=== PATIENT | female | born 1940 | race Caucasian/White ===

== ENCOUNTER 2018-05-03 13:49 | Emergency (ER) | payer OTHER ==
[~2018-05-03] VITALS: Ht 167.6 cm; Wt 78.9 kg
[~2018-05-03 13:49] MED LIST: ACET500 PO; ALPR.5 PO; ANAS1 PO; ASCO250CH PO; ASPI81CH PO; ATOR20 PO; CALCAVITD PO; CALCAVITDA PO; CHOL10002 PO; CLOP75 PO; DIPH50 PO; FISH OIL PO; FISH1000 PO; Flonase 0.05% N16 GM; GLYB2.5 PO; HYDACE5325 PO; HYDCHL25 PO; HYDR1TAB94 PO; Isosorbide Mono60 MG PO; LOSA25 PO; LOSA50 PO; METF500 PO; METO50 PO; MULVITA PO; NIAC500ER PO; OLME20 PO; OMEP20ER PO; OXYB5 PO; RXONDA4ODT MM; STOMUL PO; UBID100 PO; VENL150ER PO; VENL75ER PO
[2018-05-03 14:29] LABS: BASOPHILS ABSOLUTE AUTO 0.04 K/mm3 (0.00-0.23); BASOPHILS PERCENT AUTO 1 % (0-2); EOSINOPHILS ABSOLUTE AUTO 0.17 K/mm3 (0.00-0.68); EOSINOPHILS PERCENT AUTO 2 % (0-6); Hematocrit 38.9 % (33.0-51.0); Hemoglobin 12.8 g/dL (11.5-16.0); IMMATURE GRAN ABSOLUTE AUTO 0.06 K/mm3 (0.00-0.10); IMMATURE GRAN PERCENT AUTO 1 % (0-1); LYMPHOCYTES ABSOLUTE AUTO 2.66 K/mm3 (0.84-5.20); LYMPHOCYTES PERCENT AUTO 31 % (21-46); MONOCYTES ABSOLUTE AUTO 0.82 K/mm3 (0.16-1.47); MONOCYTES PERCENT AUTO 10 % (4-13); Mean Corpuscular HGB 29.2 pg (26.0-34.0); Mean Corpuscular HGB Conc 32.9 g/dL (31.5-36.5); Mean Corpuscular Volume 89 fL (80-100); Mean Platelet Volume 11.1 fL (9.1-12.4); NEUTROPHILS ABSOLUTE AUTO 4.79 K/mm3 (1.96-9.15); NEUTROPHILS PERCENT AUTO 56 % (41-73); Platelet Count 270 K/mm3 (150-400); RDW Coefficient Variation 13.2 % (11.7-14.2); RDW Standard Deviation 43.3 fL (35.1-46.3); Red Blood Cell Count 4.39 M/mm3 (3.80-5.20); White Blood Cell Count 8.54 K/mm3 (4.00-11.30)
[2018-05-03 14:56] LABS: Alanine Aminotransfer (ALT/SGP 18 U/L (12-78); Albumin, Blood 3.6 g/dL (3.4-5.0); Albumin/Globulin Ratio 1.2 (0.8-1.8); Alk Phos 116 U/L (50-136); Anion Gap 9 mmol/L (6-16); Aspartate Aminotrans (AST/SGOT 14 U/L (12-37); Bilirubin, Total 0.8 mg/dL (0.1-1.0); Blood Urea Nitrogen 21 mg/dL (8-24); Bun/Creatinine Ratio 18.9 (12.0-20.0); CO2, Blood 23 mmol/L (21-32); Calcium, Blood 8.9 mg/dL (8.5-10.1); Chloride, Blood 110 mmol/L (98-108); Creatinine, Blood 1.11 mg/dL (0.40-1.00); Glomerular Filtration Rate 50 (60-); Glucose, Blood 137 mg/dL (70-99); Potassium, Blood 3.9 mmol/L (3.5-5.5); Sodium, Blood 142 mmol/L (136-145); Total Protein, Blood 6.6 g/dL (6.4-8.2); Troponin I <0.015 ng/mL (0.000-0.040)
[2018-05-03 15:53] LABS: Source, Urine Clean Catch
[2018-05-03 15:57] LABS: Appearance, Urine Cloudy (Clear); Bilirubin, Urine Neg (Neg); Blood, Urine 4+ (Neg); Color, Urine Yellow (P-Yellow); Glucose Qualitative, Urine Neg (Neg); Ketones, Urine Neg (Neg); Leukocyte Esterase, Urine 3+ (Neg); Nitrite, Urine Pos (Neg); Protein, Urine 2+ (Neg); Urobilinogen, Urine NORM (Normal)
[2018-05-03 16:21] LABS: White Blood Cells, Urine TNTC /hpf (0-5)
[2018-05-03 16:22] LABS: Bacteria Many /hpf; Squamous Epithelial Cells Few /hpf (Few)
[2018-05-03] MEDS ORDERED: CEPH500 PO (16:34)
== END 2018-05-03 16:58 | disposition home or self-care (01) ==
LOC: ER 13:49
PROVIDERS: Physician Assistant
DX: R07.9 Chest pain, unspecified (principal); N39.0 Urinary tract infection, site not specified; I25.2 Old myocardial infarction; I10 Essential (primary) hypertension; E11.9 Type 2 diabetes mellitus without complications; Z88.8 Allergy status to other drugs, medicaments and biological substances; Z79.899 Other long term (current) drug therapy; Z79.82 Long term (current) use of aspirin; Z79.84 Long term (current) use of oral hypoglycemic drugs; Z87.891 Personal history of nicotine dependence
CPT/HCPCS: 36415; 71046; 80053; 81001; 84484; 85025; 87077; 87086; 87186; 93005; 93010; J0696

== ENCOUNTER 2019-04-29 11:03 | Emergency (ER) | payer OTHER ==
[~2019-04-29] VITALS: Ht 165.1 cm; Wt 63.5 kg
[~2019-04-29 11:03] MED LIST changes: +CEPH500 PO
[2019-04-29] MEDS ORDERED: Norco 5-325 Ta1 EACH PO (13:24)
== END 2019-04-29 13:49 | disposition home or self-care (01) ==
LOC: ER 11:03
DX: S42.032A Displaced fracture of lateral end of left clavicle, initial encounter for closed fracture (principal); W18.30XA Fall on same level, unspecified, initial encounter; Z88.8 Allergy status to other drugs, medicaments and biological substances; Z79.899 Other long term (current) drug therapy; Z79.84 Long term (current) use of oral hypoglycemic drugs; Z79.82 Long term (current) use of aspirin; I10 Essential (primary) hypertension; E11.9 Type 2 diabetes mellitus without complications; Z87.891 Personal history of nicotine dependence
CPT/HCPCS: 70450; 71130; 72125; 73030; 99284-25; A9270-GY

== ENCOUNTER → 2022-02-07 | Outpatient (CLI) | payer OTHER ==
[~2022-02-07] MED LIST changes: +Norco 5-325 Ta1 EACH PO
== END | disposition home or self-care (01) ==
LOC: LAB 08:54 → PLD 08:54 → LAB SHORT 08:54
DX: D48.5 Neoplasm of uncertain behavior of skin (principal)
CPT/HCPCS: 88305

== ENCOUNTER → 2022-03-06 | Outpatient (CLI) | payer OTHER | END | disposition home or self-care (01) | LOC: LAB 07:52 → PLD 07:52 → LAB SHORT 07:52 | DX: D04.61 Carcinoma in situ of skin of right upper limb, including shoulder (principal) | CPT/HCPCS: 88305 ==

== ENCOUNTER → 2022-04-14 | Outpatient (CLI) | payer OTHER ==
[2022-04-17 14:17] LABS: Adenovirus F 40/41 Not Detected (NOT DETECT); Astrovirus Not Detected (NOT DETECT); Campylobacter Sp Not Detected (NOT DETECT); Cryptosporidium Not Detected (NOT DETECT); Cyclospora Cayetanensis Not Detected (NOT DETECT); E. Coli O157 Not Detected (NOT DETECT); Entamoeba Histolytica Not Detected (NOT DETECT); Enteroaggregative E. coli-EAEC Not Detected (NOT DETECT); Enteropathogenic E. coli-EPEC Detected (NOT DETECT); Enterotoxigenic E. coli-ETEC Not Detected (NOT DETECT); Giardia Lamblia Not Detected (NOT DETECT); Norovirus GI/GII Not Detected (NOT DETECT); Plesiomonas Shigelloides Not Detected (NOT DETECT); Rotavirus A Not Detected (NOT DETECT); Salmonella Sp Not Detected (NOT DETECT); Sapovirus Not Detected (NOT DETECT); Shiga Toxin-prod E. coli-STEC Not Detected (NOT DETECT); Shigella/Enteroin E. coli-EIEC Not Detected (NOT DETECT); Vibrio Cholerae Not Detected (NOT DETECT); Vibrio Sp Not Detected (NOT DETECT); Yersinia Enterocolitica Not Detected (NOT DETECT)
== END | disposition home or self-care (01) ==
LOC: LAB 10:20 → LAB SHORT 10:20
PROVIDERS: Internal Medicine
DX: R19.7 Diarrhea, unspecified (principal)
CPT/HCPCS: 87324; 87507

== ENCOUNTER 2022-08-30 14:52 | Inpatient (IN) | payer OTHER ==
[~2022-08-30] VITALS: Ht 162.6 cm; Wt 65.5 kg
[2022-08-30 16:35] LABS: BASOPHILS ABSOLUTE AUTO 0.03 K/mm3 (0.00-0.23); BASOPHILS PERCENT AUTO 0 % (0-2); EOSINOPHILS ABSOLUTE AUTO 0.43 K/mm3 (0.00-0.68); EOSINOPHILS PERCENT AUTO 6 % (0-6); Hematocrit 40.1 % (33.0-51.0); Hemoglobin 13.2 g/dL (11.5-16.0); IMMATURE GRAN ABSOLUTE AUTO 0.04 K/mm3 (0.00-0.10); IMMATURE GRAN PERCENT AUTO 1 % (0-1); LYMPHOCYTES PERCENT AUTO 27 % (21-46); MONOCYTES ABSOLUTE AUTO 0.68 K/mm3 (0.16-1.47); MONOCYTES PERCENT AUTO 9 % (4-13); Mean Corpuscular HGB 28.8 pg (26.0-34.0); Mean Corpuscular HGB Conc 32.9 g/dL (31.5-36.5); Mean Corpuscular Volume 87 fL (80-100); Mean Platelet Volume 11.4 fL (9.1-12.4); NEUTROPHILS ABSOLUTE AUTO 4.25 K/mm3 (1.96-9.15); NEUTROPHILS PERCENT AUTO 57 % (41-73); Platelet Count 196 K/mm3 (150-400); RDW Coefficient Variation 13.5 % (11.7-14.2); RDW Standard Deviation 43.1 fL (35.1-46.3); Red Blood Cell Count 4.59 M/mm3 (3.80-5.20); White Blood Cell Count 7.43 K/mm3 (4.00-11.30)
[2022-08-30 16:49] LABS: International Normalized Ratio 0.98; Prothrombin Time Results 10.3 Sec (9.7-11.5)
[2022-08-30 16:59] LABS: Albumin, Blood 3.7 g/dL (3.4-5.0); Albumin/Globulin Ratio 1.3 (0.8-1.8); Bilirubin, Total 0.9 mg/dL (0.1-1.0); Bun/Creatinine Ratio 21.1 (12.0-20.0); Calcium, Blood 9.4 mg/dL (8.5-10.1); Creatinine, Blood 0.9 mg/dL (0.40-1.00); Globulin, Blood 2.9 g/dL (2.2-4.0); Total Protein, Blood 6.6 g/dL (6.4-8.2)
[2022-08-30 17:07] LABS: Source, Urine Clean Catch
[2022-08-30 17:10] LABS: Appearance, Urine Cloudy (Clear); Bilirubin, Urine Neg (Neg); Blood, Urine 2+ (Neg); Color, Urine Yellow (P-Yellow); Glucose Qualitative, Urine Neg (Neg); Ketones, Urine Neg (Neg); Leukocyte Esterase, Urine 3+ (Neg); Nitrite, Urine Pos (Neg); Protein, Urine 1+ (Neg); Specific Gravity, Urine 1.015 (1.003-1.022); Urobilinogen, Urine NORM (Normal)
[2022-08-30 17:22] LABS: Mucus Light (0-Heavy)
[2022-08-30 17:23] LABS: Bacteria Many /hpf; Red Blood Cells, Urine Not Seen /hpf (0-2); Squamous Epithelial Cells Rare /hpf (Few); Transitional Epithelial Cells Rare /hpf (0-Rare); White Blood Cells, Urine TNTC /hpf (0-5)
[2022-08-30] MEDS ORDERED: ASPI81CH PO (21:22)
[2022-08-30] MEDS ORDERED: BUPR75 PO (21:23)
[2022-08-30] MEDS ORDERED: VENL75ER PO (21:24)
[2022-08-30] MEDS ORDERED: METF500C PO (21:24)
[2022-08-30] MEDS ORDERED: Lipitor20 MG PO (21:25)
[2022-08-30] MEDS ORDERED: METO25ER PO (21:26)
--- NOTE | 2022-08-30 22:05 | NUR ---
ADMISSION: PT ARRIVED @2109 TO PCU 5. PT ABLE TO AMBULATE FROM GURNEY TO BED WITH ONE PERSON ASSIST. ALERT AND ORIENTED X4, ABLE TO FOLLOW COMMANDS AND MAKE NEEDS KNOWN, PEERLA, STRENGTH EQUAL BILATERALLY. RESP EVEN AND UNLABORED, NO COMPLAINTS OF SOB, CURRENTLY RA SATING >95%. BP 162/71, MEDICATED PER EMAR. SINUS RHYTHYM W/BBB 70'S. PULSES STRONG AND EQUAL THROUGHOUT. CBG 99. AC/HS CBG CHECKS ORDERED. PT NPO AT M[place] FOR POSSIBLE VICKIE IN AM. PT ORIENTED TO CALL LIGHT SYSTEM AND ROOM. BED IN LOW, ALARM ON, CALL LIGHT IN REACH.
[2022-08-31 02:10] LABS: BASOPHILS ABSOLUTE AUTO 0.07 K/mm3 (0.00-0.23); BASOPHILS PERCENT AUTO 1 % (0-2); EOSINOPHILS ABSOLUTE AUTO 0.62 K/mm3 (0.00-0.68); EOSINOPHILS PERCENT AUTO 6 % (0-6); Hematocrit 41.9 % (33.0-51.0); Hemoglobin 13.8 g/dL (11.5-16.0); IMMATURE GRAN ABSOLUTE AUTO 0.05 K/mm3 (0.00-0.10); IMMATURE GRAN PERCENT AUTO 1 % (0-1); LYMPHOCYTES ABSOLUTE AUTO 3.18 K/mm3 (0.84-5.20); LYMPHOCYTES PERCENT AUTO 30 % (21-46); MONOCYTES ABSOLUTE AUTO 0.98 K/mm3 (0.16-1.47); MONOCYTES PERCENT AUTO 9 % (4-13); Mean Corpuscular HGB 28.8 pg (26.0-34.0); Mean Corpuscular HGB Conc 32.9 g/dL (31.5-36.5); Mean Corpuscular Volume 87 fL (80-100); Mean Platelet Volume 10.8 fL (9.1-12.4); NEUTROPHILS ABSOLUTE AUTO 5.67 K/mm3 (1.96-9.15); NEUTROPHILS PERCENT AUTO 54 % (41-73); Platelet Count 257 K/mm3 (150-400); RDW Coefficient Variation 13.4 % (11.7-14.2); RDW Standard Deviation 43.5 fL (35.1-46.3); White Blood Cell Count 10.57 K/mm3 (4.00-11.30)
[2022-08-31 02:24] LABS: Albumin, Blood 3.6 g/dL (3.4-5.0); Anion Gap 7 mmol/L (6-16); Blood Urea Nitrogen 19 mg/dL (8-24); Bun/Creatinine Ratio 20.5 (12.0-20.0); CO2, Blood 29 mmol/L (21-32); Calcium, Blood 9.5 mg/dL (8.5-10.1); Chloride, Blood 109 mmol/L (98-108); Creatinine, Blood 0.93 mg/dL (0.40-1.00); Glomerular Filtration Rate 61 (60-); Glucose, Blood 119 mg/dL (70-99); Potassium, Blood 3.7 mmol/L (3.5-5.5); Sodium, Blood 145 mmol/L (136-145)
--- NOTE | 2022-08-31 04:34 | NUR ---
SHIFT SUMMARY: PT REMAINS ALERT AND ORIENTED X4, ABLE TO FOLLOW COMMANDS AND MAKE NEEDS KNOWN. PEERLA, STRENGTH EQUAL BILATERALLY, Q2 NEURO CHECKS DONE. PT LAC COURTE OREILLES. BP AND HR STABLE. AFEBRILE. SATING >95% ON RA. PT ABLE TO AMBULATE TO AND FROM BATHROOM VIA ONE PERSON ASSIST WITH A CANE, 3 UNMEASURED VOIDS THIS SHIFT, NO BM. FAMILY AT BEDSIDE UPON ADMISSION, UPDATED ON PT CARE. PT NPO FOR POSSIBLE VICKIE THIS AM. HEPARING GTT @ 16.9ML/HR. NO COMPLAINTS OF CP, PRESSURE, OR SOB. BED IN LOW, CALL LIGHT IN REAC WILL REPORT TO ONCOMING RN.
--- NOTE | 2022-08-31 08:41 | NUR ---
ASSESMENT COMPLETED WITH STUDENT NURSE, THIS RN AGREES WITH ASSESMENT.
--- NOTE | 2022-08-31 17:45 | NUR ---
SHIFT SUMMARY; ASSUMED CARE AT 0700. A/A/OX4. MOVES ALL FOUR EXTREMETIES WITHOUT DIFFICULTY. Q2 NEUROS WITH NO CHANGE NOTED. SMILE EQUAL, ANSWERS QUESTIONS APPROPRIATLY BUT KASAAN. AMBULATES WITH STANDBY ASSIST WITH FRONT WHEEL WALKER, WORKED WITH PHYSICAL THERAPY DURING DURING SHIFT. VSS, HEPARIN INFUSING AT 13UNITS/KG PER ORDERS, NO ACUTE MEDICAL CHANGES DURING SHIFT, WILL CONTINUE TO MONITOR UNTIL CHANGE OF SHIFT.
--- NOTE | 2022-09-01 04:27 | NUR ---
SHIFT SUMMARY: PT HAD NO ACUTE EVENTS OVERNIGHT. ALERT AND ORIENTED X4, ABLE TO FOLLOW COMMANDS AND MAKE NEEDS KNOWN, STRENGTH EQUAL BILATERALLY, NO SIGNS OF FACIAL DROOP/SLURRED SPEECH. Q2 NEURO CHECKS DONE THROUGHOUT SHIFT. PT SLEPT ON AND OFF A MAJORITY OF THE NIGHT. BED IN LOW, CALL LIGHT IN RECH, WILL REPORT TO ONCOMING RN.
--- NOTE | 2022-09-01 12:05 | NUR ---
SOFT BP'S WHEN 1200 VS WERE TAKEN, PT'S BP WAS SOFT. 72/39-77/56. PT ASYMPTOMATIC. DR. JONES CALLED AND A 500CC NS BOLUS WAS STARTED. PT'S IV INFILTRATED DURING BOLUS; A NEW IV WAS STARTED AND IT IS RUNNING AT A SLOWER RATE. SEE NOTES FOR ANY UPDATES.
[2022-09-01] MEDS ORDERED: CLOP75 PO (16:16)
[2022-09-01] MEDS ORDERED: MIRALAX17 GM PO (16:17)
[2022-09-01] MEDS ORDERED: PANT20 PO (16:17)
[2022-09-01] MEDS ORDERED: CEFD300 PO (16:18)
--- NOTE | 2022-09-01 16:57 | NUR ---
PT D/C PT D/C'D AND BELONGINGS SENT HOME WITH HER. WENT OVER D/C PAPERWORK AND ANSWERED ANY QUESTIONS SHE HAD. MEDICATIONS FAXED TO PHARMACY, AND SHE HAS A PCP FOLLOW UP ON 09/05. IV D/C'D AND CATHETER WAS INTACT.
== END 2022-09-01 17:16 | disposition home or self-care (01) | DRG 65 ==
LOC: ER 14:52 → PCU 14:53
PROVIDERS: Student in an Organized Health Care Education/Training Program; ADMIT Internal Medicine
DX: I63.9 Cerebral infarction, unspecified (principal); G45.8 Other transient cerebral ischemic attacks and related syndromes; G81.94 Hemiplegia, unspecified affecting left nondominant side; N39.0 Urinary tract infection, site not specified; I05.2 Rheumatic mitral stenosis with insufficiency; B96.20 Unspecified Escherichia coli [E. coli] as the cause of diseases classified elsewhere; E86.0 Dehydration; E78.00 Pure hypercholesterolemia, unspecified; K21.9 Gastro-esophageal reflux disease without esophagitis; F32.A Depression, unspecified; I25.10 Atherosclerotic heart disease of native coronary artery without angina pectoris; R29.701 NIHSS score 1; F03.90 Unspecified dementia, unspecified severity, without behavioral disturbance, psychotic disturbance, mood disturbance, and anxiety; I12.9 Hypertensive chronic kidney disease with stage 1 through stage 4 chronic kidney disease, or unspecified chronic kidney disease; N18.9 Chronic kidney disease, unspecified; E11.22 Type 2 diabetes mellitus with diabetic chronic kidney disease; R47.81 Slurred speech; R29.810 Facial weakness; I65.22 Occlusion and stenosis of left carotid artery; Z95.5 Presence of coronary angioplasty implant and graft; Z85.3 Personal history of malignant neoplasm of breast; Z98.890 Other specified postprocedural states; Z85.41 Personal history of malignant neoplasm of cervix uteri; Z90.710 Acquired absence of both cervix and uterus; Z87.19 Personal history of other diseases of the digestive system; Z92.3 Personal history of irradiation; Z23 Encounter for immunization; Z88.8 Allergy status to other drugs, medicaments and biological substances; Z79.899 Other long term (current) drug therapy; Z79.84 Long term (current) use of oral hypoglycemic drugs; I25.2 Old myocardial infarction; Z87.891 Personal history of nicotine dependence; Z79.82 Long term (current) use of aspirin; Z79.02 Long term (current) use of antithrombotics/antiplatelets; Z79.2 Long term (current) use of antibiotics
CPT/HCPCS: 36415; 70450; 70496; 70498; 70553; 80053; 80069; 81001; 82947; 84484; 85025; 85610; 85730; 87077; 87086; 87186; 90686; 93005; 93010; 93306; 96365; 96366; 97110; 97112; 97116; 97162; 97165; 97535; A9270; A9579; G0378; J1644; J7040; Q9967

== ENCOUNTER → 2025-01-30 | Outpatient (CLI) | payer OTHER ==
[~2025-01-30] MED LIST changes: +BUPR75 PO; +CEFD300 PO; +Lipitor20 MG PO; +METF500C PO; +METO25ER PO; +MIRALAX17 GM PO; +PANT20 PO
[2025-01-30 12:23] LABS: Source, Urine Clean Catch
[2025-01-30 15:37] LABS: Appearance, Urine Cloudy (Clear); Bilirubin, Urine Neg (Neg); Blood, Urine 2+ (Neg); Color, Urine Yellow (P-Yellow); Glucose Qualitative, Urine Neg (Neg); Ketones, Urine Neg (Neg); Leukocyte Esterase, Urine 1+ (Neg); Nitrite, Urine Pos (Neg); Protein, Urine 2+ (Neg); Urobilinogen, Urine NORM (Normal)
[2025-01-30 15:47] LABS: Amorphous Heavy (0-Heavy); Bacteria Many /hpf; Granular Casts 0-2 /lpf (0); Squamous Epithelial Cells Mod /hpf (Few)
== END | disposition home or self-care (01) ==
LOC: LAB 12:22 → LAB SHORT 12:22
PROVIDERS: Internal Medicine
DX: R30.0 Dysuria (principal)
CPT/HCPCS: 81001; 87077; 87086; 87186